=== PATIENT | male | born 1960 | race Two or more races ===

== ENCOUNTER 2018-05-24 16:40 | Inpatient (IN) | payer OTHER, MEDICAID ==
[~2018-05-24] VITALS: Ht 170.2 cm; Wt 103.8 kg
[2018-05-24 17:20] LABS: Hemoglobin 18.2 g/dL (13.5-17.5); Nucleated Red Blood Cells % 0.2 %
[2018-05-24 17:21] LABS: Basophils # (auto) 0.1 uL; Basophils % (auto) 0.7 % (0.0-2.0); Eosinophils # (auto) 0.2 uL; Eosinophils % (auto) 2.2 % (0.0-7.0); Hematocrit 52.6 % (41.0-53.0); Lymphocytes # (auto) 1.5 uL; Lymphocytes % (auto) 20.6 % (10.0-50.0); Mean Corpuscular Hemoglobin 30.1 pg (28.0-32.0); Mean Corpuscular Hgb Conc. 34.6 g/dL (32.0-36.0); Mean Corpuscular Volume 87.1 fL (80.0-100.0); Monocytes # (auto) 0.7 uL; Monocytes % (auto) 8.8 % (0.0-12.0); Neutrophils % (auto) 67.7 % (37.0-80.0); Platelet Count (auto) 184 10^3/uL (140-450); Red Blood Cells 6.04 10^6/uL (4.5-5.90); Red Cell Distribution Width 14.1 % (11.8-14.3); White Blood Cell 7.4 10^3/uL (4.4-10.8)
[2018-05-24 17:37] LABS: Albumin 3.8 g/dL (3.4-5.0); BUN/Creatinine Ratio 15.7; Calcium 7.8 mg/dL (8.5-10.1); Magnesium 2.2 mg/dL (1.6-2.6); Potassium 4.1 mmol/L (3.5-5.1)
[2018-05-24 17:41] LABS: Bilirubin, Total 0.6 mg/dL (0.2-1.0); Total Protein 7.3 g/dL (6.4-8.2)
[2018-05-24] MEDS ORDERED: ONDANSETRON HCL 4 MG/2 ML VIAL IV ONE (17:45)
[2018-05-24] MEDS ORDERED: MORPHINE SULFATE 4 MG/ML SYR/VIAL IV ONE (17:45)
[2018-05-24] MEDS ORDERED: SODIUM CHLORIDE 0.9% 1,000 ML IV SCH (17:46)
[2018-05-24] MEDS ORDERED: LACTULOSE 20Gm/30ML SOLN PO PRN (18:00)
[2018-05-24] MEDS ORDERED: ONDANSETRON HCL 4 MG/2 ML VIAL IV PRN (18:00)
[2018-05-24] MEDS ORDERED: TEMAZEPAM 15 MG CAP PO PRN (18:00)
[2018-05-24] MEDS ORDERED: traMADol HCL 50 MG TAB PO PRN (18:00)
[2018-05-24] MEDS ORDERED: NITROGLYCERIN 0.4 MG SL TAB SL PRN (18:00)
[2018-05-24] MEDS ORDERED: MORPHINE SULFATE 4 MG/ML SYR/VIAL IV PRN (18:00)
[2018-05-24 19:06] LABS: INR 0.99 (0.9-1.15); Partial Thromboplastin Time 29.9 sec (23.78-33.04); Prothrombin Time 10.6 sec (9.27-12.13)
[2018-05-24 20:00] VITALS: BP 185/122
[2018-05-24] MEDS: CARVEDILOL 3.125 MG TAB PO SCH (21:37)
[2018-05-24] MEDS: MORPHINE SULFATE 4 MG/ML SYR/VIAL IV PRN (21:37)
[2018-05-24] MEDS: LORazepam 0.5 MG TAB PO PRN (21:47)
[2018-05-24 22:00] VITALS: BP 148/88
[2018-05-24] MEDS ORDERED: ATORVASTATIN 20 MG TAB PO SCH (22:00)
[2018-05-25] MEDS ORDERED: METH-562 PO (00:25)
[2018-05-25] MEDS ORDERED: LISI2.5T47 PO (00:25)
[2018-05-25] MEDS ORDERED: FURO40TA4 PO (00:25)
[2018-05-25] MEDS ORDERED: ATOR20TA50 PO (00:25)
[2018-05-25] MEDS ORDERED: RANO500T2 PO (00:25)
[2018-05-25] MEDS ORDERED: CARV12.544 PO (00:25)
[2018-05-25] MEDS ORDERED: CLOP75TA41 PO (00:25)
[2018-05-25] MEDS ORDERED: AML5T PO (00:25)
[2018-05-25] MEDS: MORPHINE SULFATE 4 MG/ML SYR/VIAL IV PRN ×4 (02:05→14:40)
[2018-05-25 02:19] VITALS: BP 144/83
[2018-05-25] MEDS ORDERED: LORA-654 PO (02:49)
[2018-05-25] MEDS ORDERED: HYDR-531 PO (02:50)
[2018-05-25] MEDS: LORazepam 0.5 MG TAB PO PRN ×2 (04:26→10:05)
[2018-05-25 04:52] VITALS: BP 144/101
[2018-05-25 06:00] LABS: Basophils # (auto) 0.1 uL; Basophils % (auto) 0.8 % (0.0-2.0); Eosinophils # (auto) 0.2 uL; Eosinophils % (auto) 2.7 % (0.0-7.0); Hematocrit 51.3 % (41.0-53.0); Hemoglobin 17.6 g/dL (13.5-17.5); Lymphocytes # (auto) 2.7 uL; Lymphocytes % (auto) 34.6 % (10.0-50.0); Mean Corpuscular Hemoglobin 30.1 pg (28.0-32.0); Mean Corpuscular Hgb Conc. 34.4 g/dL (32.0-36.0); Mean Corpuscular Volume 87.7 fL (80.0-100.0); Monocytes # (auto) 0.5 uL; Monocytes % (auto) 6.6 % (0.0-12.0); Neutrophils # (auto) 4.3 uL; Neutrophils % (auto) 55.3 % (37.0-80.0); Nucleated Red Blood Cells % 0.5 %; Platelet Count (auto) 169 10^3/uL (140-450); Red Blood Cells 5.85 10^6/uL (4.5-5.90); White Blood Cell 7.9 10^3/uL (4.4-10.8)
[2018-05-25 06:15] LABS: Albumin 3.3 g/dL (3.4-5.0); BUN/Creatinine Ratio 14.8; Calcium 7.4 mg/dL (8.5-10.1); Potassium 3.8 mmol/L (3.5-5.1)
[2018-05-25 06:27] LABS: Bilirubin, Total 0.7 mg/dL (0.2-1.0); Total Protein 6.4 g/dL (6.4-8.2)
[2018-05-25 09:08] VITALS: BP 150/99
[2018-05-25] MEDS ORDERED: ASPirin 81 mg TAB PO SCH (10:00)
[2018-05-25] MEDS ORDERED: PANTOPRAZOLE 40 MG TAB PO SCH (10:00)
[2018-05-25] MEDS ORDERED: NITROGLYCERIN 0.2MG/HR TOPICAL PATCH TD SCH (10:00)
[2018-05-25] MEDS ORDERED: ENALAPRIL MALEATE 10 MG TAB PO SCH (10:00)
[2018-05-25] MEDS ORDERED: CLOPIDOGREL BISULFATE 75 MG TAB PO SCH (10:00)
[2018-05-25] MEDS: CARVEDILOL 3.125 MG TAB PO SCH (10:07)
[2018-05-25] MEDS ORDERED: SOD CHL 0.45% 1,000 ML IV SCH (13:00)
[2018-05-25 13:03] VITALS: BP 148/97
[2018-05-25 15:44] VITALS: BP 148/97
[2018-05-25 16:47] VITALS: BP 149/100
== END 2018-05-25 17:01 | disposition home or self-care (01) | DRG 302 ==
LOC: ER 16:40 → TELE 16:41 → TELE-WESTW 21:02
PROVIDERS: ADMIT Internal Medicine; ATTEND Internal Medicine
DX: I25.10 Atherosclerotic heart disease of native coronary artery without angina pectoris (principal); N17.0 Acute kidney failure with tubular necrosis; I13.0 Hypertensive heart and chronic kidney disease with heart failure and stage 1 through stage 4 chronic kidney disease, or unspecified chronic kidney disease; E87.2 Acidosis; N18.4 Chronic kidney disease, stage 4 (severe); I25.5 Ischemic cardiomyopathy; E66.9 Obesity, unspecified; F12.90 Cannabis use, unspecified, uncomplicated; I08.0 Rheumatic disorders of both mitral and aortic valves; I50.9 Heart failure, unspecified; Z82.3 Family history of stroke; Z68.35 Body mass index [BMI] 35.0-35.9, adult; Z82.49 Family history of ischemic heart disease and other diseases of the circulatory system; Z86.73 Personal history of transient ischemic attack (TIA), and cerebral infarction without residual deficits; Z95.5 Presence of coronary angioplasty implant and graft; Z79.02 Long term (current) use of antithrombotics/antiplatelets; Z88.8 Allergy status to other drugs, medicaments and biological substances; Z88.5 Allergy status to narcotic agent; Z83.3 Family history of diabetes mellitus; Z88.6 Allergy status to analgesic agent
CPT/HCPCS: 36415; 71045; 80053; 80061; 82550; 83735; 83880; 84443; 84484; 85025; 85379; 85610; 85652; 85730; 86141; 93005; 93306; 94761; 96361; 96374; 96375; J2405

== ENCOUNTER 2018-06-07 17:01 | Inpatient (IN) | payer OTHER, MEDICAID ==
[~2018-06-07] VITALS: Ht 170.2 cm; Wt 103.8 kg
[~2018-06-07 17:01] MED LIST: AML5T PO; ATOR20TA50 PO; CARV12.544 PO; CLOP75TA41 PO; FURO40TA4 PO; HYDR-531 PO; LISI2.5T47 PO; LORA-654 PO; METH-562 PO; RANO500T2 PO
[2018-06-07 18:15] LABS: Basophils # (auto) 0.1 uL; Basophils % (auto) 0.6 % (0.0-2.0); Eosinophils # (auto) 0.1 uL; Eosinophils % (auto) 1.6 % (0.0-7.0); Hematocrit 49.7 % (41.0-53.0); Hemoglobin 17.4 g/dL (13.5-17.5); Lymphocytes # (auto) 2.1 uL; Lymphocytes % (auto) 22.9 % (10.0-50.0); Mean Corpuscular Hemoglobin 30.6 pg (28.0-32.0); Mean Corpuscular Volume 87.4 fL (80.0-100.0); Monocytes # (auto) 0.6 uL; Monocytes % (auto) 6.9 % (0.0-12.0); Neutrophils # (auto) 6.1 uL; Nucleated Red Blood Cells % 0.1 %; Platelet Count (auto) 175 10^3/uL (140-450); Red Blood Cells 5.69 10^6/uL (4.5-5.90); Red Cell Distribution Width 13.4 % (11.8-14.3)
[2018-06-07] MEDS ORDERED: MORPHINE SULFATE 4 MG/ML SYR/VIAL IV ONE ×2 (18:15→19:15)
[2018-06-07] MEDS ORDERED: ONDANSETRON HCL 4 MG/2 ML VIAL IV ONE (18:15)
[2018-06-07 18:33] LABS: Albumin 3.6 g/dL (3.4-5.0); Calcium 8.7 mg/dL (8.5-10.1); Potassium 3.7 mmol/L (3.5-5.1)
[2018-06-07 18:37] LABS: Total Protein 7.1 g/dL (6.4-8.2)
[2018-06-07 18:41] LABS: INR 1.05 (0.9-1.15); Partial Thromboplastin Time 29.6 sec (23.78-33.04); Prothrombin Time 11.2 sec (9.27-12.13)
[2018-06-07 18:46] LABS: Bilirubin, Total 0.5 mg/dL (0.2-1.0)
[2018-06-07 18:50] LABS: BUN/Creatinine Ratio 11.6
[2018-06-07] MEDS ORDERED: ONDANSETRON HCL 4 MG/2 ML VIAL IV PRN (21:15)
[2018-06-07] MEDS ORDERED: NITROGLYCERIN 0.4 MG SL TAB SL PRN (21:15)
[2018-06-07 21:53] VITALS: BP 160/104
[2018-06-07] MEDS: LORazepam 0.5 MG TAB PO PRN (22:15)
[2018-06-07] MEDS: ATORVASTATIN 20 MG TAB PO SCH (22:16)
[2018-06-07] MEDS: CARVEDILOL 12.5 MG TAB PO SCH (22:16)
[2018-06-07] MEDS: HYDROcodone-ACET 5/325MG TAB PO PRN (22:17)
[2018-06-07 22:35] VITALS: BP 160/104
[2018-06-08] MEDS: HYDROcodone-ACET 5/325MG TAB PO PRN ×2 (03:22→09:07)
[2018-06-08 05:00] VITALS: BP 145/99
[2018-06-08] MEDS ORDERED: FUROSEMIDE 20 MG TAB PO SCH (06:00)
[2018-06-08 07:10] LABS: Basophils # (auto) 0 uL; Basophils % (auto) 0.7 % (0.0-2.0); Eosinophils # (auto) 0.2 uL; Eosinophils % (auto) 2.6 % (0.0-7.0); Hemoglobin 16.7 g/dL (13.5-17.5); Lymphocytes # (auto) 1.8 uL; Lymphocytes % (auto) 26.5 % (10.0-50.0); Mean Corpuscular Volume 88.3 fL (80.0-100.0); Monocytes # (auto) 0.4 uL; Monocytes % (auto) 5.7 % (0.0-12.0); Neutrophils # (auto) 4.5 uL; Neutrophils % (auto) 64.5 % (37.0-80.0); Nucleated Red Blood Cells % 0.1 %; Platelet Count (auto) 163 10^3/uL (140-450); Red Blood Cells 5.55 10^6/uL (4.5-5.90); White Blood Cell 6.9 10^3/uL (4.4-10.8)
[2018-06-08 07:24] LABS: BUN/Creatinine Ratio 11.5; Potassium 3.8 mmol/L (3.5-5.1)
[2018-06-08 09:00] VITALS: BP 154/92
[2018-06-08] MEDS: SODIUM CHLORIDE 0.9% 1,000 ML IV SCH (09:15)
[2018-06-08] MEDS ORDERED: LISINOPRIL 5 MG TAB PO SCH (10:00)
[2018-06-08] MEDS ORDERED: amLODIPine BESYLATE 5 MG TAB PO SCH (10:00)
[2018-06-08] MEDS: CLOPIDOGREL BISULFATE 75 MG TAB PO SCH (10:40)
[2018-06-08] MEDS: LORazepam 0.5 MG TAB PO PRN ×2 (10:42→20:14)
[2018-06-08] MEDS: CARVEDILOL 12.5 MG TAB PO SCH ×2 (10:45→21:17)
[2018-06-08] MEDS ORDERED: MORPHINE SULFATE 4 MG/ML SYR/VIAL IV ONE (11:30)
[2018-06-08] MEDS ORDERED: NTG 0.1MG/HR TOPICAL PATCH TD ONE (11:30)
[2018-06-08 12:00] VITALS: BP 144/102
[2018-06-08 13:43] LABS: Alcohol, Urine < 3.0 mg/dL (0-5); Amphetamine Screen, Urine NEGATIVE (NEGATIVE); Barbiturate Scree,Urine NEGATIVE (NEGATIVE); Benzodiazephine Screen, Urine NEGATIVE (NEGATIVE); Cannabinoid Screen, Urine POSITIVE (NEGATIVE); Cocaine Screen, Urine NEGATIVE (NEGATIVE); Opiate Scree,Urine NEGATIVE (NEGATIVE); Phencyclidine Screen, Urine NEGATIVE (NEGATIVE)
[2018-06-08] MEDS: hydrALAZINE HCL 25 MG TAB PO SCH ×2 (15:04→21:18)
[2018-06-08 17:00] VITALS: BP 130/78
[2018-06-08] MEDS: MORPHINE SULFATE 4 MG/ML SYR/VIAL IV PRN (17:54)
[2018-06-08 19:53] LABS: Urine Bacteria NONE SEEN /hpf (None Seen); Urine Blood Negative /uL (Negative); Urine Mucus FEW (None Seen); Urine WBC <1 /hpf (0 - 3)
[2018-06-08] MEDS: ATORVASTATIN 20 MG TAB PO SCH (21:16)
[2018-06-09] MEDS: SODIUM CHLORIDE 0.9% 1,000 ML IV SCH ×2 (00:22→15:41)
[2018-06-09] MEDS: MORPHINE SULFATE 4 MG/ML SYR/VIAL IV PRN ×4 (00:26→20:15)
[2018-06-09] MEDS ORDERED: CALCIUM CARB 500 MG CHEW TAB PO ONE (01:00)
[2018-06-09] MEDS: hydrALAZINE HCL 25 MG TAB PO SCH ×3 (05:20→21:20)
[2018-06-09 05:23] VITALS: BP 159/97
[2018-06-09 07:28] LABS: Calcium 8.7 mg/dL (8.5-10.1); Potassium 3.9 mmol/L (3.5-5.1)
[2018-06-09 07:31] LABS: BUN/Creatinine Ratio 11.1
[2018-06-09 09:00] VITALS: BP 164/108
[2018-06-09] MEDS ORDERED: NTG 0.1MG/HR TOPICAL PATCH TD SCH (10:00)
[2018-06-09] MEDS: CLOPIDOGREL BISULFATE 75 MG TAB PO SCH (10:00)
[2018-06-09] MEDS: ACETYLCYSTEINE ORAL for CIN 20%(200MG/ML) 4ML PO SCH ×2 (10:41→21:52)
[2018-06-09] MEDS: CARVEDILOL 12.5 MG TAB PO SCH ×2 (10:42→21:21)
[2018-06-09] MEDS: amLODIPine BESYLATE 5 MG TAB PO SCH (10:43)
[2018-06-09 13:00] VITALS: BP 142/104
[2018-06-09 17:00] VITALS: BP 151/108
[2018-06-09] MEDS ORDERED: ACETYLCYSTEINE ORAL for CIN 20%(200MG/ML) 4ML PO SCH (18:00)
[2018-06-09 18:54] LABS: BUN/Creatinine Ratio 10.5; Potassium 4.1 mmol/L (3.5-5.1)
[2018-06-09 19:30] LABS: Urine Bacteria NONE SEEN /hpf (None Seen); Urine Blood Negative /uL (Negative); Urine Specific Gravity 1.009 (1.001-1.035); Urine WBC 1 /hpf (0 - 3)
[2018-06-09] MEDS: ATORVASTATIN 20 MG TAB PO SCH (21:20)
[2018-06-09 21:24] LABS: Protein, Urine 35.5 mg/dL (0.0-11.9)
[2018-06-09] MEDS: LORazepam 0.5 MG TAB PO PRN ×2 (21:42→21:52)
[2018-06-09 22:00] VITALS: BP 144/101
[2018-06-10] MEDS: MORPHINE SULFATE 4 MG/ML SYR/VIAL IV PRN ×5 (01:51→18:28)
[2018-06-10 05:00] VITALS: BP 143/100
[2018-06-10] MEDS: hydrALAZINE HCL 25 MG TAB PO SCH ×3 (06:00→21:07)
[2018-06-10] MEDS: SODIUM CHLORIDE 0.9% 1,000 ML IV SCH (06:01)
[2018-06-10] MEDS ORDERED: IODIXANOL 320MG/ML 100ML BTL IV ONE ×2 (07:41→10:22)
[2018-06-10] MEDS ORDERED: LIDOCAINE 2%HCL (LOCAL ANESTH.) INJ 10ml MDV ONE (07:41)
[2018-06-10 07:44] VITALS: BP 124/78
[2018-06-10 08:00] VITALS: BP 124/78
[2018-06-10 08:19] LABS: BUN/Creatinine Ratio 14.1; Calcium 8.4 mg/dL (8.5-10.1); Potassium 4.2 mmol/L (3.5-5.1)
[2018-06-10] MEDS ORDERED: VERAPAMIL 2.5MG/ML INJ 2ML VIAL IV ONE (09:30)
[2018-06-10] MEDS ORDERED: ANGIOMAX 250 MG VIAL IV ONE (09:30)
[2018-06-10] MEDS ORDERED: SODIUM CHL 0.9% 50 ML ONE (09:31)
[2018-06-10] MEDS ORDERED: fentaNYL CITRATE 100 MCG/2 ML VL ONE ×2 (09:31→10:00)
[2018-06-10] MEDS ORDERED: MIDAZOLAM HCL 1MG/1ML-2 ML VIAL ONE ×2 (09:31→09:59)
[2018-06-10] MEDS: amLODIPine BESYLATE 5 MG TAB PO SCH (10:00)
[2018-06-10] MEDS: CLOPIDOGREL BISULFATE 75 MG TAB PO SCH (10:00)
[2018-06-10] MEDS: CARVEDILOL 12.5 MG TAB PO SCH ×2 (10:00→21:08)
[2018-06-10] MEDS ORDERED: CLOPIDOGREL 300 MG TAB ONE (10:39)
[2018-06-10] MEDS ORDERED: ASPirin 325 MG TAB ONE (10:39)
[2018-06-10] MEDS ORDERED: TEMAZEPAM 15 MG CAP PO PRN (12:00)
[2018-06-10] MEDS: ACETYLCYSTEINE ORAL for CIN 20%(200MG/ML) 4ML PO SCH ×2 (13:36→21:14)
[2018-06-10 16:31] VITALS: BP 132/99
[2018-06-10] MEDS: HYDROcodone-ACET 5/325MG TAB PO PRN (20:40)
[2018-06-10] MEDS: ATORVASTATIN 20 MG TAB PO SCH (21:07)
[2018-06-10 22:00] VITALS: BP 148/102
[2018-06-11] MEDS: MORPHINE SULFATE 4 MG/ML SYR/VIAL IV PRN ×3 (00:05→12:06)
[2018-06-11 05:00] VITALS: BP 133/86
[2018-06-11] MEDS: hydrALAZINE HCL 25 MG TAB PO SCH ×2 (06:03→14:00)
[2018-06-11 07:03] LABS: Potassium 3.8 mmol/L (3.5-5.1)
[2018-06-11 07:08] LABS: BUN/Creatinine Ratio 12.9; Calcium 8.4 mg/dL (8.5-10.1)
[2018-06-11 09:00] VITALS: BP 133/77
[2018-06-11] MEDS ORDERED: HYDR-4296 PO (09:10)
[2018-06-11] MEDS ORDERED: AML5T PO (09:11)
[2018-06-11] MEDS ORDERED: ISO20T PO (09:48)
[2018-06-11] MEDS ORDERED: RANOLAZINE ER 500 MG TAB PO SCH (10:00)
[2018-06-11] MEDS ORDERED: ASPirin 81 mg TAB PO SCH (10:00)
[2018-06-11] MEDS ORDERED: ISOSORBIDE MONONITRATE 20 MG TAB PO SCH (10:00)
[2018-06-11] MEDS: CLOPIDOGREL BISULFATE 75 MG TAB PO SCH (10:09)
[2018-06-11] MEDS: amLODIPine BESYLATE 5 MG TAB PO SCH (10:14)
[2018-06-11] MEDS: CARVEDILOL 12.5 MG TAB PO SCH (10:16)
[2018-06-11 13:00] VITALS: BP_SYST 93; BP_SYST 96; BP_DIAS 66; BP_DIAS 71
== END 2018-06-11 18:06 | disposition home or self-care (01) | DRG 250 ==
LOC: ER 17:01 → EDBD 17:01 → TELE 17:02 → TELE-CENTR 22:00
PROVIDERS: ADMIT Nurse Practitioner Family; ATTEND Internal Medicine
PROC: 4A023N7 Measurement of Cardiac Sampling and Pressure, Left Heart, Percutaneous Approach (ICD-10-PCS; principal; 2018-06-10)
PROC: 02703ZZ Dilation of Coronary Artery, One Artery, Percutaneous Approach (ICD-10-PCS; 2018-06-10)
PROC: B2111ZZ Fluoroscopy of Multiple Coronary Arteries using Low Osmolar Contrast (ICD-10-PCS; 2018-06-10)
DX: T82.855A Stenosis of coronary artery stent, initial encounter (principal); I21.09 ST elevation (STEMI) myocardial infarction involving other coronary artery of anterior wall; N17.0 Acute kidney failure with tubular necrosis; I21.19 ST elevation (STEMI) myocardial infarction involving other coronary artery of inferior wall; I13.0 Hypertensive heart and chronic kidney disease with heart failure and stage 1 through stage 4 chronic kidney disease, or unspecified chronic kidney disease; I25.110 Atherosclerotic heart disease of native coronary artery with unstable angina pectoris; I16.1 Hypertensive emergency; N18.3 Chronic kidney disease, stage 3 (moderate); E11.22 Type 2 diabetes mellitus with diabetic chronic kidney disease; I50.9 Heart failure, unspecified; Y83.1 Surgical operation with implant of artificial internal device as the cause of abnormal reaction of the patient, or of later complication, without mention of misadventure at the time of the procedure; I25.5 Ischemic cardiomyopathy; E78.5 Hyperlipidemia, unspecified; I25.2 Old myocardial infarction; Z82.49 Family history of ischemic heart disease and other diseases of the circulatory system; Z87.891 Personal history of nicotine dependence; Z83.3 Family history of diabetes mellitus; Z88.5 Allergy status to narcotic agent; Z88.1 Allergy status to other antibiotic agents; Z86.73 Personal history of transient ischemic attack (TIA), and cerebral infarction without residual deficits; Y92.89 Other specified places as the place of occurrence of the external cause
CPT/HCPCS: 36415; 71045; 80048; 80053; 80307; 81001; 82570; 83735; 83880; 84156; 84300; 84443; 84484; 85025; 85610; 85730; 86850; 86900; 86901; 87081; 92920; 93458; 93926; 96374; 96375; 96376; 99152; A6257; G0378; J2001; J2250; J2405; Q9967

== ENCOUNTER 2018-11-08 15:54 | Inpatient (IN) | payer OTHER, MEDICAID | END 2018-11-09 19:50 | disposition left against medical advice (07) | LOC: TELE 11-09 00:41 → TELE-EAST 11-09 02:32 → ER 15:54 ==

== ENCOUNTER 2019-03-06 17:54 | Emergency (ER) | payer OTHER, MEDICAID ==
[~2019-03-06] VITALS: Ht 172.7 cm; Wt 108.9 kg
[~2019-03-06 17:54] MED LIST changes: +FURO1TAB31 PO; -FURO40TA4 PO; +HYDR-4296 PO; +ISO20T PO; -LISI2.5T47 PO; -LORA-654 PO; +LORA0.5T12 PO
[2019-03-06 18:06] VITALS: BP 160/112
== END 2019-03-06 20:48 | disposition left against medical advice (07) ==
LOC: EDBD 17:54 → ER 17:57
DX: M25.511 Pain in right shoulder (principal); I13.0 Hypertensive heart and chronic kidney disease with heart failure and stage 1 through stage 4 chronic kidney disease, or unspecified chronic kidney disease; N18.9 Chronic kidney disease, unspecified; I50.89 Other heart failure; E78.5 Hyperlipidemia, unspecified; F12.10 Cannabis abuse, uncomplicated; I25.2 Old myocardial infarction; Z86.73 Personal history of transient ischemic attack (TIA), and cerebral infarction without residual deficits; Z88.6 Allergy status to analgesic agent; Z79.899 Other long term (current) drug therapy; Z95.0 Presence of cardiac pacemaker
CPT/HCPCS: 73030; 93005

== ENCOUNTER 2019-06-07 10:42 | Inpatient (IN) | payer OTHER, MEDICAID ==
[~2019-06-07] VITALS: Ht 170.2 cm; Wt 103.8 kg
[2019-06-07] MEDS ORDERED: ASPirin 81 mg TAB PO ONE (11:15)
[2019-06-07 11:23] LABS: Basophils # (auto) 0.1 uL; Basophils % (auto) 1.1 % (0.0-2.0); Eosinophils # (auto) 0.2 uL; Eosinophils % (auto) 1.7 % (0.0-7.0); Hemoglobin 16.6 g/dL (13.5-17.5); Lymphocytes # (auto) 2.1 uL; Lymphocytes % (auto) 22.5 % (10.0-50.0); Mean Corpuscular Hemoglobin 29.9 pg (28.0-32.0); Mean Corpuscular Hgb Conc. 33.9 g/dL (32.0-36.0); Mean Corpuscular Volume 88.1 fL (80.0-100.0); Monocytes # (auto) 0.6 uL; Monocytes % (auto) 6.7 % (0.0-12.0); Neutrophils # (auto) 6.3 uL; Nucleated Red Blood Cells % 0.1 %; Platelet Count (auto) 208 10^3/uL (140-450); Red Blood Cells 5.56 10^6/uL (4.5-5.90); Red Cell Distribution Width 14.4 % (11.8-14.3); White Blood Cell 9.2 10^3/uL (4.4-10.8)
[2019-06-07 11:52] LABS: Urine Bacteria FEW /hpf (None Seen); Urine Blood Negative /uL (Negative); Urine Specific Gravity 1.008 (1.001-1.035); Urine WBC <1 /hpf (0 - 3)
[2019-06-07 11:56] LABS: Alanine Aminotransferase 34 U/L (16-61); Albumin 3.8 g/dL (3.4-5.0); Alkaline Phosphatase 71 U/L (45-117); Anion Gap 7 (5-15); Aspartate Aminotransferase 22 U/L (15-37); BUN/Creatinine Ratio 11.9; Bilirubin, Total 0.7 mg/dL (0.2-1.0); Blood Urea Nitrogen 27 mg/dL (7-18); Calcium 8.7 mg/dL (8.5-10.1); Carbon Dioxide 22 mmol/L (21-32); Chloride 112 mmol/L (98-107); GFR African American 38 mL/min; GFR Non-African American 32 mL/min; Glucose 101 mg/dL (74-106); Magnesium 2.3 mg/dL (1.6-2.6); Potassium 3.8 mmol/L (3.5-5.1); Sodium 141 mmol/L (136-145); Total Protein 7.1 g/dL (6.4-8.2)
[2019-06-07] MEDS ORDERED: ONDANSETRON HCL 4 MG/2 ML VIAL IV ONE (12:00)
[2019-06-07] MEDS ORDERED: MORPHINE SULF INJ 2 MG/ML SYRINGE 1ML IV ONE (12:00)
[2019-06-07] MEDS ORDERED: MORPHINE SULF INJ 2 MG/ML SYRINGE 1ML IV PRN (14:45)
[2019-06-07] MEDS ORDERED: NITROGLYCERIN 0.4 MG SL TAB SL PRN (14:45)
[2019-06-07] MEDS: HYDROcodone-ACET 10/325MG TAB PO PRN ×2 (15:40→20:42)
[2019-06-07] MEDS ORDERED: TEMA30CA PO (16:21)
[2019-06-07] MEDS ORDERED: cefTRIAXone 1GM/50ML D5W 50 ML IV ONE (16:30)
[2019-06-07 17:20] VITALS: BP 109/62
[2019-06-07] MEDS ORDERED: AZITHROMYCIN 500MG/ 250ML 250 ML IV ONE (18:00)
[2019-06-07] MEDS: hydrALAZINE HCL 25 MG TAB PO SCH (21:34)
[2019-06-07] MEDS: ALPRAZolam 0.5 MG TAB PO PRN (21:34)
[2019-06-07] MEDS: ATORVASTATIN 20 MG TAB PO SCH (21:35)
[2019-06-07] MEDS: ONDANSETRON HCL 4 MG/2 ML VIAL IV PRN (21:45)
[2019-06-07] MEDS: ISOSORBIDE MONONITRATE IR 20 MG TAB PO SCH (21:46)
[2019-06-07 22:00] VITALS: BP 144/90
[2019-06-08 05:02] VITALS: BP 113/71
[2019-06-08] MEDS: hydrALAZINE HCL 25 MG TAB PO SCH ×3 (05:15→21:37)
[2019-06-08 06:14] LABS: Basophils # (auto) 0.1 uL; Basophils % (auto) 0.9 % (0.0-2.0); Eosinophils # (auto) 0.3 uL; Eosinophils % (auto) 4.2 % (0.0-7.0); Hemoglobin 16.1 g/dL (13.5-17.5); Lymphocytes # (auto) 2.2 uL; Lymphocytes % (auto) 29.7 % (10.0-50.0); Mean Corpuscular Hemoglobin 30.1 pg (28.0-32.0); Mean Corpuscular Hgb Conc. 34.2 g/dL (32.0-36.0); Monocytes # (auto) 0.6 uL; Monocytes % (auto) 7.7 % (0.0-12.0); Neutrophils # (auto) 4.3 uL; Neutrophils % (auto) 57.5 % (37.0-80.0); Platelet Count (auto) 189 10^3/uL (140-450); Red Blood Cells 5.34 10^6/uL (4.5-5.90); Red Cell Distribution Width 14.4 % (11.8-14.3); White Blood Cell 7.5 10^3/uL (4.4-10.8)
[2019-06-08 06:17] LABS: INR 1.02 (0.9-1.15); Partial Thromboplastin Time 29.7 sec (23.64-32.05)
[2019-06-08] MEDS: HYDROcodone-ACET 10/325MG TAB PO PRN ×4 (06:32→23:55)
[2019-06-08 07:02] LABS: BUN/Creatinine Ratio 12.3; Potassium 3.6 mmol/L (3.5-5.1)
[2019-06-08] MEDS ORDERED: cefTRIAXone 1GM/50ML D5W 50 ML IV SCH (09:00)
[2019-06-08 09:18] VITALS: BP 144/100
[2019-06-08] MEDS: RANOLAZINE ER 500 MG TAB PO SCH (09:45)
[2019-06-08] MEDS: amLODIPine BESYLATE 5 MG TAB PO SCH (09:45)
[2019-06-08] MEDS: CARVEDILOL 12.5 MG TAB PO SCH (09:46)
[2019-06-08] MEDS: ISOSORBIDE MONONITRATE IR 20 MG TAB PO SCH ×2 (09:46→21:36)
[2019-06-08] MEDS: CLOPIDOGREL BISULFATE 75 MG TAB PO SCH (09:46)
[2019-06-08] MEDS: METHOCARBAMOL 500 MG TAB PO SCH (09:47)
[2019-06-08] MEDS ORDERED: FUROSEMIDE 20 MG TAB PO SCH (10:00)
[2019-06-08] MEDS ORDERED: AZITHROMYCIN 500MG/ 250ML 250 ML IV SCH (10:00)
[2019-06-08] MEDS ORDERED: FUROSEMIDE 40 MG TAB PO SCH (10:00)
[2019-06-08] MEDS: ALPRAZolam 0.5 MG TAB PO PRN ×2 (11:16→21:36)
[2019-06-08 12:46] VITALS: BP 120/84
[2019-06-08] MEDS ORDERED: AZITHROMYCIN 250 MG TAB PO ONE (15:15)
[2019-06-08 17:22] VITALS: BP 114/79
[2019-06-08] MEDS: ONDANSETRON HCL 4 MG/2 ML VIAL IV PRN (21:35)
[2019-06-08] MEDS: ATORVASTATIN 20 MG TAB PO SCH (21:37)
[2019-06-08 22:00] VITALS: BP 129/84
[2019-06-09] MEDS: hydrALAZINE HCL 25 MG TAB PO SCH (05:38)
[2019-06-09 06:00] VITALS: BP 134/78
[2019-06-09] MEDS: HYDROcodone-ACET 10/325MG TAB PO PRN (07:57)
[2019-06-09 09:00] VITALS: BP 138/87
[2019-06-09] MEDS: ALPRAZolam 0.5 MG TAB PO PRN (09:31)
[2019-06-09] MEDS: CLOPIDOGREL BISULFATE 75 MG TAB PO SCH (09:32)
[2019-06-09] MEDS: CARVEDILOL 12.5 MG TAB PO SCH (09:33)
[2019-06-09] MEDS: METHOCARBAMOL 500 MG TAB PO SCH (09:33)
[2019-06-09] MEDS: amLODIPine BESYLATE 5 MG TAB PO SCH (09:34)
[2019-06-09] MEDS: RANOLAZINE ER 500 MG TAB PO SCH (09:34)
[2019-06-09] MEDS: ISOSORBIDE MONONITRATE IR 20 MG TAB PO SCH ×2 (09:36→09:47)
[2019-06-09] MEDS ORDERED: AZITHROMYCIN 250 MG TAB PO SCH (10:00)
[2019-06-09] MEDS ORDERED: FUROSEMIDE 40 MG TAB PO SCH (10:00)
[2019-06-09] MEDS ORDERED: AZIT250T8 PO (10:10)
== END 2019-06-09 12:40 | disposition home or self-care (01) | DRG 291 ==
LOC: EDBD 10:42 → ER 10:43 → TELE 10:44 → TELE-CENTR 16:00
PROVIDERS: ADMIT Nurse Practitioner Acute Care; ATTEND Internal Medicine
DX: I13.0 Hypertensive heart and chronic kidney disease with heart failure and stage 1 through stage 4 chronic kidney disease, or unspecified chronic kidney disease (principal); I50.23 Acute on chronic systolic (congestive) heart failure; I24.9 Acute ischemic heart disease, unspecified; N18.4 Chronic kidney disease, stage 4 (severe); J06.9 Acute upper respiratory infection, unspecified; E66.9 Obesity, unspecified; E78.5 Hyperlipidemia, unspecified; I25.10 Atherosclerotic heart disease of native coronary artery without angina pectoris; I25.5 Ischemic cardiomyopathy; J44.9 Chronic obstructive pulmonary disease, unspecified; Z79.02 Long term (current) use of antithrombotics/antiplatelets; Z79.899 Other long term (current) drug therapy; Z82.49 Family history of ischemic heart disease and other diseases of the circulatory system; Z83.3 Family history of diabetes mellitus; Z86.73 Personal history of transient ischemic attack (TIA), and cerebral infarction without residual deficits; Z95.810 Presence of automatic (implantable) cardiac defibrillator; Z95.5 Presence of coronary angioplasty implant and graft; Z88.5 Allergy status to narcotic agent; Z68.35 Body mass index [BMI] 35.0-35.9, adult
CPT/HCPCS: 36415; 71045; 78582; 80048; 80053; 81001; 83735; 83880; 84484; 85025; 85610; 85730; 86141; 87070; 87081; 87804; 87880; 93306; 96365; 96367; 96375; G0378; J0696; J2405

== ENCOUNTER 2024-03-13 17:58 | Emergency (ER) | payer OTHER, MEDICAID ==
[~2024-03-13] VITALS: Ht 170.2 cm; Wt 90.0 kg
[~2024-03-13 17:58] MED LIST changes: +AZIT-185 PO; -CLOP75TA41 PO; +CLOP75TA70 PO; -HYDR-4296 PO; +HYDR25TA88 PO; +LORA-1121 PO; -LORA0.5T12 PO; +TEMA30CA PO
[2024-03-13] MEDS: HYDROmorphone HCL 2 MG/ML VL/or syr IM ONE ×2 (18:33→22:15)
[2024-03-13 18:43] LABS: Basophils # (auto) 0.1 10 ^3/uL (0-0.2); Basophils % (auto) 0.7 % (0.0-2.0); Eosinophils # (auto) 0.2 10 ^3/uL (0-0.8); Eosinophils % (auto) 2.6 % (0.0-7.0); Hematocrit 47.2 % (41.0-53.0); Hemoglobin 15.8 g/dL (13.5-17.5); Lymphocytes # (auto) 1.5 10 ^3/uL (0.4-5.4); Lymphocytes % (auto) 17.4 % (10.0-50.0); Mean Corpuscular Hemoglobin 30.3 pg (28.0-32.0); Mean Corpuscular Hgb Conc. 33.5 g/dL (32.0-36.0); Mean Corpuscular Volume 90.5 fL (80.0-100.0); Monocytes # (auto) 0.6 10 ^3/uL (0-1.3); Neutrophils # (auto) 6.2 10 ^3/uL (1.6-8.6); Neutrophils % (auto) 72.3 % (37.0-80.0); Red Blood Cells 5.21 10^6/uL (4.5-5.90); Red Cell Distribution Width 14.1 % (11.8-14.3); White Blood Cell 8.6 10^3/uL (4.4-10.8)
[2024-03-13 19:01] LABS: Alanine Aminotransferase 15 U/L (7-40); Albumin 4.4 g/dL (3.2-4.8); Alkaline Phosphatase 64 U/L (46-116); Anion Gap 11 (5-15); Aspartate Aminotransferase 10 U/L (13-40); BUN/Creatinine Ratio 10.6 (10.0-20.0); Blood Urea Nitrogen 30 mg/dL (9-23); Calcium 9.2 mg/dL (8.7-10.4); Carbon Dioxide 20 mmol/L (20-30); Chloride 108 mmol/L (98-107); Glucose 112 mg/dL (74-106); Sodium 139 mmol/L (136-145)
[2024-03-13 19:02] LABS: Bilirubin, Total 0.6 mg/dL (0.2-1.0); Total Protein 6.9 g/dL (5.7-8.2)
[2024-03-13 19:14] VITALS: RESP 44; O2SAT 97
[2024-03-13 22:25] VITALS: BP 144/91; PULSE 60; RESP 12; TEMP 98.7; O2SAT 95
== END 2024-03-13 22:29 | disposition home or self-care (01) ==
LOC: EDBD 17:58 → ER 17:58
DX: S16.1XXA Strain of muscle, fascia and tendon at neck level, initial encounter (principal); S39.012A Strain of muscle, fascia and tendon of lower back, initial encounter; S09.8XXA Other specified injuries of head, initial encounter; I11.0 Hypertensive heart disease with heart failure; I50.9 Heart failure, unspecified; I25.10 Atherosclerotic heart disease of native coronary artery without angina pectoris; J44.9 Chronic obstructive pulmonary disease, unspecified; I25.2 Old myocardial infarction; F15.90 Other stimulant use, unspecified, uncomplicated; E66.01 Morbid (severe) obesity due to excess calories; Z68.31 Body mass index [BMI] 31.0-31.9, adult; Z86.73 Personal history of transient ischemic attack (TIA), and cerebral infarction without residual deficits; Z98.890 Other specified postprocedural states; Z88.5 Allergy status to narcotic agent; Z79.899 Other long term (current) drug therapy; V89.2XXA Person injured in unspecified motor-vehicle accident, traffic, initial encounter; Y93.89 Activity, other specified; Y92.89 Other specified places as the place of occurrence of the external cause; Y99.8 Other external cause status
CPT/HCPCS: 36415; 70450; 72100; 72125; 80053; 84484; 85025; 93005; 96372; 99285; J1170